=== PATIENT | male | born 1990 | race Caucasian/White ===

== ENCOUNTER 2019-07-03 18:41 | Inpatient (IN) | payer SELFPAY ==
[~2019-07-03] VITALS: Ht 177.8 cm; Wt 59.2 kg
--- NOTE | 2019-07-03 23:45 | NUR ---
PATIENT ARRIVED VIA STRETCHER, AND WAS ABLE TO AMBULATE HIMSELF TO THE BED HOWEVER HE WAS VERY WEEK. PAPERWORK GIVEN TO ME BY EMS. PATIENT STABLE AND AMADEO JOHNSON AT BEDSIDE.
[2019-07-03 23:58] VITALS: O2SAT 100
[2019-07-03 23:59] VITALS: O2SAT 100
[2019-07-04] VITALS (750 sets, daily range): BP systolic 115–135; BP diastolic 70–86; PULSE 95–110; TEMP 97.8–98.7; O2SAT 91–100
[2019-07-04 00:27] LABS: HEMATOCRIT 38.9 % (42.0-52.0); HEMOGLOBIN 12.3 g/dl (13.5-18.0); MEAN CELL VOLUME 76 fl (80.0-100.0); MEAN CORPUSCULAR HEMOGLOBIN 24 pg (27.0-31.0); MEAN CORPUSCULAR HGB CONC 32 g/dl (33.0-37.0); MEAN PLATELET VOLUME 11.1 fl (7.4-10.4); PLATELET COUNT 235 K/mm3 (130-400); RED BLOOD COUNT 5.09 M/mm3 (4.20-5.60); REDCELL DISTRIBUTION WIDTH-CV 16.7 % (11.5-14.5)
[2019-07-04 00:40] LABS: INR 0.9 (0.8-3.0)
[2019-07-04 00:45] LABS: ALANINE AMINOTRANSFERASE 19 U/L (4-49); ALBUMIN 3.6 gm/dL (3.5-5.0); ALKALINE PHOSPHATASE 160 U/L (50-136); AST,SGOT 21 U/L (15-37); BILIRUBIN,TOTAL 0.5 mg/dL (0.0-1.0); BLOOD UREA NITROGEN 13 mg/dL (9-20); CALCIUM 8.3 mg/dL (8.4-10.2); CHLORIDE 101 mmol/L (98-107); CREATININE, serum 0.78 (0.66-1.25); GLUCOSE 336 mg/dL (74-106); MAGNESIUM 1.8 mg/dL (1.6-2.3); PHOSPHOROUS 3.4 mg/dL (2.5-4.5); POTASSIUM 3.7 mmol/L (3.4-5.0); SODIUM 132 mmol/L (137-145); TOTAL PROTEIN 6.5 gm/dL (6.4-8.2)
[2019-07-04] MEDS ORDERED: LEVEMIR100 U/ML SQ (00:49)
[2019-07-04] MEDS ORDERED: NOVOLOG 100U100 U/M1 SQ (00:49)
[2019-07-04] MEDS ORDERED: PRINIVIL10 MG PO (00:49)
[2019-07-04 00:54] LABS: CARBON DIOXIDE < 5 mmol/L (22-30); SALICYLATE < 1.0 mg/dL
[2019-07-04 00:54] LABS: ARTERIAL BLD GAS O2 SATURATION 97.8 % (92-100); ARTERIAL BLD GAS TCO2 CT 2.7; ARTERIAL BLOOD GAS BASE EXCESS -26.6 (-2-2); ARTERIAL BLOOD GAS HCO3 2.4 meq/L (22-26)
[2019-07-04 00:55] LABS: TROPONIN-I < 0.012 ng/mL (0.000-0.035)
[2019-07-04 00:56] LABS: COLLECTION METHOD CLEAN CATCH
[2019-07-04 00:56] LABS: ARTERIAL BLOOD GAS PCO2 9.6 mmHg (35-45); ARTERIAL BLOOD GAS PO2 124.2 mmHg (80-100); ARTERIAL BLOOD GAS pH 7.02 (7.35-7.45)
[2019-07-04 01:17] LABS: MUCOUS Present /lpf; PH 5 (5-8); SQUAMOUS EPITHELIAL 0-2 /hpf; URINE APPEARANCE Hazy; URINE BACTERIA None Seen /hpf; URINE BILIRUBIN Negative (NEGATIVE); URINE BLOOD 2+ (NEGATIVE); URINE COLOR Yellow; URINE GLUCOSE 3+ (NEGATIVE); URINE KETONE 2+ (NEGATIVE); URINE LEUKOCYTE ESTERASE Negative (NEGATIVE); URINE NITRATE Negative (NEGATIVE); URINE PROTEIN(semi-quant) 1+ (NEGATIVE); URINE RBC 0-2 /hpf; URINE UROBILINOGEN Negative (NEGATIVE)
[2019-07-04 01:30] LABS: BAND 62 % (0-10); LYMPHOCYTE 5 % (20.0-51.0); NEUTROPHILS 20 % (42.0-75.2)
[2019-07-04 02:51] LABS: CREATININE, serum 0.65 (0.66-1.25); POTASSIUM 3.1 mmol/L (3.4-5.0)
[2019-07-04 04:44] LABS: HEMOGLOBIN 10.9 g/dl (13.5-18.0); MEAN CELL VOLUME 73 fl (80.0-100.0); MEAN CORPUSCULAR HEMOGLOBIN 24 pg (27.0-31.0); MEAN CORPUSCULAR HGB CONC 33 g/dl (33.0-37.0); MEAN PLATELET VOLUME 10.5 fl (7.4-10.4); PLATELET COUNT 226 K/mm3 (130-400); RED BLOOD COUNT 4.58 M/mm3 (4.20-5.60); REDCELL DISTRIBUTION WIDTH-CV 16.3 % (11.5-14.5)
[2019-07-04 04:55] LABS: ALBUMIN 2.9 gm/dL (3.5-5.0); BILIRUBIN,TOTAL 0.3 mg/dL (0.0-1.0); CALCIUM 7.8 mg/dL (8.4-10.2); CREATININE, serum 0.61 (0.66-1.25); TOTAL PROTEIN 5.8 gm/dL (6.4-8.2)
[2019-07-04 04:56] LABS: POTASSIUM 2.9 mmol/L (3.4-5.0)
[2019-07-04 04:58] LABS: HEMATOCRIT 33.3 % (42.0-52.0)
[2019-07-04 05:05] LABS: BAND 75 % (0-10); LYMPHOCYTE 2 % (20.0-51.0); METAMYELOCYTE 1 % (0-0); NEUTROPHILS 18 % (42.0-75.2)
--- NOTE | 2019-07-04 05:27 | NUR ---
notified AMADEO Vu about potassium being 2.9.
[2019-07-04 05:28] LABS: PROTHROMBIN TIME 11.4 SECONDS (9.7-12.8)
--- NOTE | 2019-07-04 07:30 | NUR ---
Vancomycin Initial Dosing Pharmacy Note Ordering provider: Mirella Gonzalez APRN Indication/duration: PNA Relevant comorbidities: DM, BMI 15.4 LABS: eCrCl > 100 mL/min, WBC 17 Recommendation: Loading dose: 1.5 grams given 07/04/19 @ 02:30 Maintenance dose: 1 gram Q8H starting 07/04/19 @ 11:00 Trough goal: 15-20 ug/mL with first trough level ordered for 07/05/19 @ 18:30. Will continue to follow.
[2019-07-04 07:40] LABS: CALCIUM 8.5 mg/dL (8.4-10.2); CREATININE, serum 0.6 (0.66-1.25); POTASSIUM 3.1 mmol/L (3.4-5.0)
--- NOTE | 2019-07-04 08:00 | NUR ---
Report received from Key PACE and care resumed.
[2019-07-04 09:08] LABS: CALCIUM 8.3 mg/dL (8.4-10.2); CREATININE, serum 0.55 (0.66-1.25)
[2019-07-04 09:15] LABS: POTASSIUM 2.7 mmol/L (3.4-5.0)
--- NOTE | 2019-07-04 12:08 | NUR ---
Initial visit; Patient thanked Casket Trimmer for looking in on him and offering spiritual care.
[2019-07-04 13:49] LABS: CALCIUM 8.5 mg/dL (8.4-10.2); CREATININE, serum 0.46 (0.66-1.25); POTASSIUM 3.2 mmol/L (3.4-5.0)
--- NOTE | 2019-07-04 14:56 | NUR ---
break out worker met with patient to discuss discharge planning. Worker confirmed that patient has health insurance through his job at [employer], however, it does not cover his prescriptions (insulin). Patient states he doesn't always have his insulin, due to high cost of medication, and that he hasn't seen a primary care provider for about 6 months due to cost. Worker provided information on [facility] and patient is agreeable to this plan, as they also have drug presription assistance. Worker collaborated with hospital pharmacy staff to complete a [facility] application to provide 1 month supply of insulin while he waits to get established with the [facility]. Patient states he lives with his parents in [place], [place]. Patient plans to return home.
--- NOTE | 2019-07-04 16:05 | NUR ---
Decrease by 1 unit per hour due to last check 3 hours ago per phone order Dr Campos.
[2019-07-04 17:37] LABS: CALCIUM 8.5 mg/dL (8.4-10.2); CREATININE, serum 0.39 (0.66-1.25); POTASSIUM 3.3 mmol/L (3.4-5.0)
[2019-07-04 17:53] LABS: TRICYCLIC ANTIDEPRESS URINE NEGATIVE
--- NOTE | 2019-07-04 19:10 | NUR ---
Report given to Neema PACE and care transfered.
[2019-07-04 21:56] LABS: CALCIUM 8.4 mg/dL (8.4-10.2); CREATININE, serum 0.4 (0.66-1.25); POTASSIUM 3.3 mmol/L (3.4-5.0)
[2019-07-05] VITALS (590 sets, daily range): BP systolic 98–111; BP diastolic 35–78; PULSE 87–122; TEMP 98–99.3; O2SAT 43–100
[2019-07-05 03:27] LABS: CREATININE, serum 0.43 (0.66-1.25); POTASSIUM 3.7 mmol/L (3.4-5.0)
[2019-07-05 06:49] LABS: BASO # 0.1 (0.0-0.2); BASO % 0.5 % (0.0-2.0); EOS % 0.1 % (0-4.0); GRAN # 12.5 (1.4-6.5); GRAN % 85.1 % (42.2-75.2); LYMPH # 0.9 (1.2-3.4); LYMPH % 5.9 % (20.0-51.0); MEAN CELL VOLUME 71 fl (80.0-100.0); MEAN CORPUSCULAR HGB CONC 34 g/dl (33.0-37.0); MEAN PLATELET VOLUME 11.1 fl (7.4-10.4); MONO # 1.1 (0.1-0.6); MONO % 7.4 % (1.7-9.3); PLATELET COUNT 204 K/mm3 (130-400); RED BLOOD COUNT 3.92 M/mm3 (4.20-5.60); REDCELL DISTRIBUTION WIDTH-CV 16.2 % (11.5-14.5)
[2019-07-05 06:50] LABS: HEMATOCRIT 27.9 % (42.0-52.0); HEMOGLOBIN 9.4 g/dl (13.5-18.0); MEAN CORPUSCULAR HEMOGLOBIN 24 pg (27.0-31.0)
[2019-07-05 06:54] LABS: PROTHROMBIN TIME 11.2 SECONDS (9.7-12.8)
[2019-07-05 07:01] LABS: ALBUMIN 2.6 gm/dL (3.5-5.0); BILIRUBIN,TOTAL 0.6 mg/dL (0.0-1.0); CALCIUM 8.4 mg/dL (8.4-10.2); CREATININE, serum 0.35 (0.66-1.25); POTASSIUM 3.4 mmol/L (3.4-5.0); TOTAL PROTEIN 5.3 gm/dL (6.4-8.2)
--- NOTE | 2019-07-05 07:10 | NUR ---
Report given to SANJEEV Maxwell.
[2019-07-05 10:35] LABS: HIV 1/2 Antibodies Non-Reactive; HIV-1p24 Antigen Non-Reactive
--- NOTE | 2019-07-05 10:44 | NUR ---
Follow-up visit; Patient states he is feeling better this morning and thanked Radio Equipment Installer for looking in on him.
--- NOTE | 2019-07-05 21:00 | NUR ---
Insulin gtt D/C per provider order.
[2019-07-06] VITALS (42 sets, daily range): BP systolic 107–126; BP diastolic 60–83; PULSE 75–94; TEMP 97.4–98.4; O2SAT 81–100
[2019-07-06 04:30] LABS: HEMATOCRIT 29.4 % (42.0-52.0); HEMOGLOBIN 9.8 g/dl (13.5-18.0); MEAN CELL VOLUME 71 fl (80.0-100.0); MEAN CORPUSCULAR HEMOGLOBIN 24 pg (27.0-31.0); MEAN CORPUSCULAR HGB CONC 33 g/dl (33.0-37.0); MEAN PLATELET VOLUME 10.2 fl (7.4-10.4); PLATELET COUNT 226 K/mm3 (130-400); RED BLOOD COUNT 4.15 M/mm3 (4.20-5.60); REDCELL DISTRIBUTION WIDTH-CV 16.4 % (11.5-14.5)
[2019-07-06 04:35] LABS: INR 0.8 (0.8-3.0); PROTHROMBIN TIME 9.7 SECONDS (9.7-12.8)
[2019-07-06 05:12] LABS: ALBUMIN 2.3 gm/dL (3.5-5.0); BILIRUBIN,TOTAL 0.4 mg/dL (0.0-1.0); CALCIUM 8.5 mg/dL (8.4-10.2); CREATININE, serum 0.21 (0.66-1.25); POTASSIUM 3.1 mmol/L (3.4-5.0); TOTAL PROTEIN 4.7 gm/dL (6.4-8.2)
[2019-07-06 05:52] LABS: ANISOCYTOSIS 1+; BAND 28 % (0-10); LYMPHOCYTE 8 % (20.0-51.0); MICROCYTOSIS 1+; MYELOCYTE 2 % (0-0); NEUTROPHILS 60 % (42.0-75.2); PLATELET ESTIMATE NORMAL (NORMAL); TARGET CELLS 1+
[2019-07-06 05:53] LABS: BURR CELLS 1+
--- NOTE | 2019-07-06 06:30 | NUR ---
At 0542, recieved a phone call from lab stating that PT blood glucose was 38. At this point, I was in another PT room and immediately called charge nurse, iVki PACE to check on PT and administer medications. Charge nurse stated that she gave 12.5gm of D50W and PT was easily arousable. Rechecked FSBS at 0615 and was found to be 101, PT woke up easily and was following commands.
--- NOTE | 2019-07-06 07:00 | NUR ---
Bedside report received from SANJEEV Bethea.
--- NOTE | 2019-07-06 07:15 | NUR ---
Bedside report given to SANJEEV Soni.
--- NOTE | 2019-07-06 10:42 | NUR ---
D5NS initiated per Dr. Espino verbal order d/t persistent hypoglycemia. Patient has been asymptomatic. Endo RN updated. Will continue to monitor.
--- NOTE | 2019-07-06 11:00 | NUR ---
EGD RESCEDULED FOR TUESDAY THE , PER DR. MORROW.
--- NOTE | 2019-07-06 11:08 | NUR ---
Vancomycin Follow-up Pharmacy Note Current regimen: vancomycin 1 g q8h Vancomycin trough: 9.6 Adjustments: increase to vancomycin 1.25g q8h
--- NOTE | 2019-07-06 14:28 | NUR ---
Physical therapy is recommending outpatient physical therapy. The patient would like to go [facility] but would be private pay. PLASTIC FINISHER student contacted [facility] with [facility] and the initial visit is $115 and $55 per unit, a unit is 15 minutes. The patient can get 20% off if he pays up front. The patient states "I can check it out for a couple of times." PLASTIC FINISHER student faxed (f# [phone]) information to [facility]. Homa reports they will contact the patient on Tuesday, 07/08. The patient will need an outpatient physical therapy order at discharge. manager managed backup services will continue to follow.
--- NOTE | 2019-07-06 18:13 | NUR ---
REPORT CALLED TO MEDICAL FLOOR RN.
--- NOTE | 2019-07-06 18:40 | NUR ---
Pt report recieved from dayshift nurse at bedside. Pt sitting in bed with TV on and no s/s of distress noted. MARKETING TEAM LEAD informed this writer producer that they will be assisting Pt with a shower after shift report. Will continue to monitor.
--- NOTE | 2019-07-06 20:20 | NUR ---
Pt asks this fiction and nonfiction writer prose if there is any information regarding his discharge. This fiction and nonfiction writer prose informs Pt that this fiction and nonfiction writer prose will review the chart notes and get back to the Pt with what information is found. Pt is ambulating without difficulty, is &Ox4, is able to make wants/needs known, has call light within reach.
--- NOTE | 2019-07-06 23:40 | NUR ---
This marine underwriter discusses the reports that this marine underwriter read about Pt having EGD scheduled for Tuesday as it pertains to Pt Discharge. Pt replies that he is under the impression that this EGD is scheduled out patient and he may Discharge from the unit prior to then. Pt remains in stable condition at this time with no s/s of distress noted. Will continue to monitor. Pt continues to rest peacefully in bed watching tv with call light at his side.
[2019-07-07 00:03] VITALS: BP 107/60; PULSE 86; TEMP 98.6
--- NOTE | 2019-07-07 02:14 | NUR ---
Pt right AC IV was noted as difficult to flush at first but quickly resolved with increased pressure. Pt made short pain type noise but then clarifies that as flush continues there is no pain or discomfort. Pt educated that while Vanco is infusing if he has any pain, burning, swelling at/near the IV site, any redness develops, or warmth at the IV site to immediately notify nurse. Pt stated understanding of education. Will continue to monitor.
[2019-07-07 04:17] VITALS: BP 99/55; PULSE 91; TEMP 98
--- NOTE | 2019-07-07 06:16 | NUR ---
Pt wakes as this card writer hand enters room to obtain/clear total of iv fluids infused. Pt shows no s/s of distress and does not report mireya pain, wants/needs, or concerns. Call light within reach as are beverages.
--- NOTE | 2019-07-07 06:31 | NUR ---
This insurance underwriter sales is reported to by SEED BUYER that PT BS is 47 and that SEED BUYER gave juice upon request. This insurance underwriter sales educates SEED BUYER and Pt that carbs and protein also need to be given due to the fact that the sugars in juice wqill quickly become absorbed and Pt BS will once again drop, potentially further, if only sugard are given. Pt and SEED BUYER state understanding.
[2019-07-07 08:22] VITALS: BP 118/64; PULSE 81; TEMP 97.6
[2019-07-07 08:27] LABS: BASO # 0.1 (0.0-0.2); BASO % 0.8 % (0.0-2.0); EOS # 0.1 (0.0-0.7); EOS % 1.1 % (0-4.0); GRAN # 4.4 (1.4-6.5); GRAN % 51.8 % (42.2-75.2); HEMOGLOBIN 10.5 g/dl (13.5-18.0); LYMPH # 2.3 (1.2-3.4); MEAN CELL VOLUME 71 fl (80.0-100.0); MEAN CORPUSCULAR HEMOGLOBIN 24 pg (27.0-31.0); MEAN CORPUSCULAR HGB CONC 33 g/dl (33.0-37.0); MEAN PLATELET VOLUME 10.5 fl (7.4-10.4); MONO # 1.5 (0.1-0.6); MONO % 17.8 % (1.7-9.3); PLATELET COUNT 315 K/mm3 (130-400); RED BLOOD COUNT 4.41 M/mm3 (4.20-5.60); REDCELL DISTRIBUTION WIDTH-CV 16.7 % (11.5-14.5)
[2019-07-07 08:30] LABS: HEMATOCRIT 31.5 % (42.0-52.0)
[2019-07-07 08:31] LABS: CALCIUM 8.9 mg/dL (8.4-10.2); CREATININE, serum 0.33 (0.66-1.25); POTASSIUM 3.2 mmol/L (3.4-5.0)
--- NOTE | 2019-07-07 09:15 | NUR ---
PT IN BED WITH HOB ELEVATED, DR. PONCE IN TO SEE PT. PT REQUESTED TO GO HOME. DR. PONCE ADVISED THAT HE WILL CHECK WITH THE OTHER DOCTORS FIRST. PT DENIES PAIN OR DISCOMFORT AT THIS TIME. RESP EVEN AND UNLABORED AT THIS TIME. CALL LIGHT WITHIN REACH.
[2019-07-07] MEDS ORDERED: CLEOCIN HCL300 MG PO (12:32)
[2019-07-07] MEDS ORDERED: NOVLOG SQ (12:45)
[2019-07-07] MEDS ORDERED: LEVEMIR100 U/ML SQ (12:45)
[2019-07-07 13:23] VITALS: BP 109/63; PULSE 95; TEMP 98.1
[2019-07-07] MEDS ORDERED: HUMULIN 70/3100 U/M1 SQ (14:03)
--- NOTE | 2019-07-07 16:20 | NUR ---
PT MEETS CRITERIA FOR DISCHARGE. PT WAS TAKEN DOWN BY THIS NURSE AND PT LEFT WITH FAMILY. PT HAD ALL PERSONAL BELONGINGS AND DISCHARGE INSTRUCTIONS WITH HIM.
== END 2019-07-07 16:20 | disposition home or self-care (01) | DRG 871 ==
LOC: IMCU 18:41 → ICU 23:44 → MEDICAL 07-06 19:35
PROVIDERS: Hospitalist; Internal Medicine Pulmonary Disease; Nurse Practitioner Family; ADMIT Internal Medicine
DX: A41.9 Sepsis, unspecified organism (principal); E10.10 Type 1 diabetes mellitus with ketoacidosis without coma; J18.9 Pneumonia, unspecified organism; E43 Unspecified severe protein-calorie malnutrition; I96 Gangrene, not elsewhere classified; E10.52 Type 1 diabetes mellitus with diabetic peripheral angiopathy with gangrene; Z68.1 Body mass index [BMI] 19.9 or less, adult; H91.92 Unspecified hearing loss, left ear; D50.9 Iron deficiency anemia, unspecified; F17.210 Nicotine dependence, cigarettes, uncomplicated; F12.10 Cannabis abuse, uncomplicated; K59.00 Constipation, unspecified
CPT/HCPCS: 99223-AI; 99233-AI; 99239; J1650; J1815; J2543; J3370; J3480; J7030; J7042; J7050; J7070